=== PATIENT | male | born 1955 | race African-American/Black ===

== ENCOUNTER 2019-12-28 15:29 | Emergency (ER) | payer OTHER, SELFPAY ==
--- NOTE | ~2019-12-28 | CT_ITS ---
EXAMINATION: CT abdomen pelvis wo con DATE: 12/28/2019 17:58 INDICATION: Right flank pain. TECHNIQUE: Computed tomography (CT) of the abdomen and pelvis was performed without intravenous contr ast. Automated exposure control and iterative reconstruction technique were employed. The dose-length product was 279.32 mGy-cm. COMPARISON: None. FINDINGS: The visualized portions of the lung bases demonstrate minimal atelectasis. No pleural effus ion. The heart size is normal. No pericardial effusion. The liver, gallbladder, spleen, pancreas, adr enal glands, and kidneys are normal. There is no urolithiasis. The prostate is moderately enlarged. T here is a small left inguinal hernia containing fat. There are no dilated loops of bowel. The appendi x is normal. There is an umbilical hernia containing a loop of nonobstructed small bowel. There are n o pathologically enlarged lymph nodes. There is no free intraperitoneal fluid. There is mild thoracic and lumbar spondylosis. IMPRESSION: 1. No urolithiasis. 2. Umbilical hernia containing a loop of nonobstructed small bowel. Reviewed, dictated and finalized at location A. R ANALYST
[2019-12-28 16:16] VITALS: BP 162/95; PULSE 80; RESP 16; TEMP 36.6; O2SAT 100
[2019-12-28 16:35] LABS: Basophils Absolute Auto 0.1 K/mm3 (0.0-0.1); Basophils Percent Auto 0.8 % (0.2-1.2); Eosinophils Absolute Auto 0.1 K/mm3 (0-0.3); Eosinophils Percent Auto 1.7 % (0-4.4); Hematocrit 36.6 % (42.0-52.0); Hemoglobin 11.6 g/dL (14.0-18.0); Immature Granulocyte Absolute 0.01 K/mm3 (0.00-0.031); Immature Granulocyte Percent A 0.1 % (0-0.5); Immature Platelet Fraction Pct 10.9 % (0.9-11.2); Lymphocytes Percent Auto 27.7 % (18.3-44.2); Mean Corpuscular HGB Conc 31.7 g/dl (32-36); Mean Corpuscular Volume 66.3 fl (80-100); Monocytes Absolute Auto 0.4 K/mm3 (0.1-0.6); Neutrophils Absolute Auto 4.6 K/mm3 (1.3-6.7); Neutrophils Percent Auto 63.7 % (45.5-73.1); Platelet Count Result 144 k/mm3 (150-375); Red Blood Count 5.52 M/mm3 (4.6-6.20); Red Cell Distribution Width 15.7 % (11.5-14.5); White Blood Count 7.2 K/mm3 (4.5-10.0)
[2019-12-28 16:50] LABS: Blood Urea Nitrogen 16 mg/dL (9-20); Calcium 9.2 mg/dL (8.4-10.2); Carbon Dioxide 24 mmol/L (22-30); Chloride 103 mmol/L (98-107); Estimated CRCL calculation 65 ml/min; Estimated Glomerular Filt Rate > 60; Glucose 231 mg/dL (75-110); Sodium 138 mmol/L (137-145)
[2019-12-28 17:04] LABS: Add Urine Microscopic? YES; Appearance Urine Clear (Clear); Bacteria Urine Trace /hpf; Bilirubin Urine Negative (Negative); Blood Urine Negative (Negative); Color Urine Yellow (Yellow); Glucose Urine UA 3+ mg/dL (Negative); Ketones Urine Negative (Negative); Leukocyte Esterase Ur Negative LEU/UL (Negative); Mucus Urine Rare /lpf; Nitrate Urine Negative (Negative); Protein Urine Negative (Negative); RBC Urine 0-2 /hpf (0-2); Specific Grav Ur 1.023 (1.001-1.035); Squamous Epithelial Cell Urine Rare /hpf (Few); Urobilinogen Urine Negative mg/dL (<2.0); WBC Urine 0-3 /hpf
[2019-12-28 17:37] VITALS: BP 152/88; PULSE 84; RESP 18; O2SAT 98
--- NOTE | 2019-12-28 17:41 | ED.ABDPAIN ---
HPI - Abdominal Pain General Chief Complaint: Abdominal Pain Stated Complaint: abd pain Time Seen by Provider: 12/28/19 17:38 Source: patient and RN notes reviewed Mode of arrival: other Limitations: no limitations History of Present Illness HPI narrative: Pt is a 64 y/o male who presents to the ED with c/o mild to moderate intermittent right flank pain that radiates to his testicles that began yesterday evening. Pt denies any alleviating or aggravating factors. Pt states that he has tried to sit and lay down in different positions to alleviate his sx, but with no relief. Pt reports dark colored urine, but denies dysuria, hematuria, urinary hesitancy, diaphoresis, vomiting, and a fever. MD elicited complaint: flank pain Onset (ago): day(s) (1) Pain Consistency: intermittent Location: R flank Severity: mild (to moderate) Radiation: other (testicles) Exacerbating factors: nothing Relieving factors: nothing Associated symptoms: other (dark colored urine) Related Data Home Medications Medication Instructions Recorded Confirmed glipizide 5 mg tablet 5 mg PO BID 10/07/19 insulin glargine 100 unit/mL (3 10 unit SUB-Q BID ml 10/07/19 mL) subcutaneous pen lisinopril 20 mg tablet 20 mg PO DAILY 10/07/19 omeprazole 20 mg capsule,delayed 20 mg PO DAILY 10/07/19 release sitagliptin 50 mg-metformin 1,000 1 tablet PO BID 10/07/19 mg tablet tadalafil 10 mg tablet 20 mg PO DAILY PRN tablet 10/07/19 Allergies Allergy/AdvReac Type Severity Reaction Status Date / Time No Known Allergies Allergy Verified 12/28/19 17:37 Review of Systems Review of Systems: All systems reviewed & are unremarkable except as noted in HPI and below Constitutional: Constitutional: Denies fever(s) Cardiovascular: Cardiovascular: Denies diaphoresis Gastrointestinal: Gastrointestinal: Denies vomiting Genitourinary: Genitourinary: Denies hematuria, Denies dysuria, Reports flank pain (right, radiates to his testicles), Denies urinary hesitancy and Reports other (dark colored urine) [facility] Past Medical History Medical History (Updated 12/28/19 @ 21:03 by Gurwinder Sellers MD) Benign essential hypertension Enlarged prostate without lower urinary tract symptoms (luts) Erectile dysfunction associated with type 2 diabetes mellitus Gastroesophageal reflux disease Stage 3 chronic kidney disease due to type 2 diabetes mellitus Thalassemia minor Type II diabetes mellitus with renal manifestations Vitamin D deficiency Surgical History Surgical History (Updated 12/28/19 @ 17:55 by Crystal Blunt) Surgical history unknown Family History Family History (Updated 06/01/16 @ 23:19 by DOCTOR UNKNOWN) Mother Family history of malignant neoplasm, Onset Age: 54 Father Family history of diabetes mellitus in first degree relative, Onset Age: 96 Sibling Acute myocardial infarction, Onset Age: 55 Social History Social History Smoking status: Never smoker Alcohol intake: current Exam Const: General: healthy appearing, no acute distress and well developed Nutritional Appearance: well nourished Orientation/consciousness: patient oriented x3 (alert) and Other orientation findings (Alert) Limitations: no limitations HENMT: Head: normocephalic and atraumatic Ears: external ears normal General nose exam: No nasal discharge present and no epistaxis Face and sinus: face symmetric Mouth: Yes lip normal, Yes tongue normal and Yes moist mucous membranes Throat: other (No exudate, no erythema) Eyes: Conjunctivae: conjunctivae normal Sclera: sclerae normal EOM: EOMs intact bilaterally Neck: Neck: full ROM, no lymphadenopathy and supple Thyroid: thyroid normal Chest: Chest palpation & inspection: no tenderness Resp: Effort & Inspection: normal respiratory effort Auscultation: clear to auscultation bilaterally, no rales, no rhonchi, no wheezes and other (breath sounds equal) Cardio: Rate: regular rate Rhythm: regular rhythm Heart
[2019-12-28] MEDS: KETOROLAC 30 MG/ML VIAL (*BKC) 60 MG IM (18:16)
[2019-12-28 18:27] LABS: Iron 78 ug/dL (49-181)
[2019-12-28 18:36] LABS: Percent Iron Saturation 27 % (20-50)
[2019-12-28 19:15] VITALS: BP 148/84; PULSE 88; RESP 16; O2SAT 97
[2019-12-28] MEDS: DICYCLOMINE HCL INJ 20 MG/2 ML VIAL IM (20:12)
== END 2019-12-28 21:15 | disposition home or self-care (01) ==
PROVIDERS: Emergency Medicine; Emergency Provider Emergency Medicine; PCP Internal Medicine
DX: R10.9 Unspecified abdominal pain (principal); N40.0 Benign prostatic hyperplasia without lower urinary tract symptoms; K21.9 Gastro-esophageal reflux disease without esophagitis; E11.22 Type 2 diabetes mellitus with diabetic chronic kidney disease; I12.9 Hypertensive chronic kidney disease with stage 1 through stage 4 chronic kidney disease, or unspecified chronic kidney disease; N18.3 Chronic kidney disease, stage 3 (moderate); Z79.4 Long term (current) use of insulin; Z79.84 Long term (current) use of oral hypoglycemic drugs; E55.9 Vitamin D deficiency, unspecified; E11.69 Type 2 diabetes mellitus with other specified complication; N52.1 Erectile dysfunction due to diseases classified elsewhere; K42.9 Umbilical hernia without obstruction or gangrene
CPT/HCPCS: 36415; 74176; 80048; 81001; 83540; 83550; 85025; 85055; 96372; 99284; A9270; J0500; J1885

== ENCOUNTER 2022-04-25 01:13 | Day surgery (SDC) | payer MEDICARE, OTHER, SELFPAY ==
[2022-04-13 14:43] VITALS: BMI 26.4
[2022-04-25 08:58] VITALS: BP 142/90; PULSE 72; RESP 18; TEMP 36.4; O2SAT 100
[2022-04-25] MEDS: LACTATED RINGERS 1,000 ML 150 ML IV CONT (09:10)
[2022-04-25 09:13] LABS: Glucose Point of Care 148 mg/dl (65-105)
--- NOTE | 2022-04-25 09:20 | WPDANESEPPF ---
Anes - Initial Pre Proc Eval Procedure: Operation Date: 04/25/22 10:00 Proposed Procedures p Screening Colonoscopy - Jose Duke MD Date/Time: 04/25/22 09:20 Surgeon: Jose Duke MD Pre Op Diagnosis: neoplasm screening Patient Data Age: 66 Gender: M Height: 1.83 m Weight: 85.3 kg Last Vital Signs Temp 36.4 C 04/25/22 08:58 Pulse 72 04/25/22 08:58 Resp 18 04/25/22 08:58 BP 142/90 H 04/25/22 08:58 Pulse Ox 100 04/25/22 08:58 O2 Del Method Room Air 04/25/22 08:58 Allergies Allergy/AdvReac Type Severity Reaction Status Date / Time No Known Allergies Allergy Verified 04/25/22 08:56 Home Medications Medication Instructions Recorded Confirmed Type lisinopril 20 mg tablet 20 mg PO DAILY 10/07/19 04/13/22 History ergocalciferol (vitamin D2) 1,250 50,000 unit PO MONTHLY #12 caps 11/09/19 04/13/22 Rx mcg (50,000 unit) capsule tadalafil 20 mg tablet (Cialis) 20 mg PO DAILY PRN sexual activity 04/26/21 04/13/22 Rx #6 tabs pen needle, diabetic 31 gauge x See Rx Instructions .Route 11/15/21 04/13/22 Rx 3/16 (BD Ultra-Fine Mini Pen .COMPLEX #100 ea Needle) glipizide 5 mg tablet 5 mg PO BID #90 tabs 03/08/22 04/13/22 Rx insulin glargine 100 unit/mL (3 15 unit subcut BID 04/13/22 04/13/22 History mL) subcutaneous pen (Basaglar KwikPen U-100 Insulin) lovastatin 20 mg tablet 20 mg PO HS 04/13/22 04/13/22 History sitagliptin 50 mg-metformin 1,000 1 tablet PO BID 04/13/22 04/13/22 History mg tablet (Janumet) Laboratory Tests 04/25/22 09:06 POC Capillary Glucose 148 mg/dl H mg/dl (65-105) Patient hx anesthesia problems: none Family hx anesthesia problems: none Results Review: All pre-operative results and documents have been reviewed as part of the pre-operative evaluation. [facility] Past Medical History Medical History Benign essential hypertension Enlarged prostate without lower urinary tract symptoms (luts) Erectile dysfunction associated with type 2 diabetes mellitus Gastroesophageal reflux disease Shingles Stage 3 chronic kidney disease due to type 2 diabetes mellitus Thalassemia minor Type II diabetes mellitus with renal manifestations Vitamin D deficiency Surgical History Surgical History Surgical history unknown Family History Family History Mother Family history of malignant neoplasm, Onset Age: 54 Father Family history of diabetes mellitus in first degree relative, Onset Age: 96 Sibling Acute myocardial infarction, Onset Age: 55 Social History Social History Smoking packs per day: 0.1 Smoking cigarettes per day: 2.0 Years smoked: 5 Smoking pack-years: 0.50 Smoking status: Former smoker Tobacco type: cigarettes Smoking end date: 11/04/19 Alcohol intake: current Drinks per week: 3 Substance use: never Substance use type: does not use Living arrangements: with family Spiritual care concerns: No Anes - Eval Final PreProcedure Day of Procedure 04/25/22 09:20 Results Review: All pre-operative results and documents have been reviewed as part of the pre-operative evaluation. Informed Consent: The patient's anesthetic plan and its attendant risks and benefits were discussed with the patient/family/POA. Questions were solicited and answers provided to the satisfaction of the patient/family/POA.
--- NOTE | 2022-04-25 09:22 | PM.HPGS ---
History of Present Illness History of Present Illness Consent: Risks, benefits, and alternatives have been discussed and questions answered. Patient agrees to proceed with procedure. Chief complaint: neoplasm screening Narrative: Lee Ontiveros is a 66 year old male here for screening colonoscopy, last one ~ 5 years ago. Review of Systems Constitutional: Constitutional: Denies headache(s) and Denies weakness Eyes: Eyes: Denies blurry vision ENT: Reports Normal hearing present, Denies headache(s) and Denies neck pain Cardiovascular: Cardiovascular: Denies chest pain and Denies dyspnea Respiratory: Respiratory: Denies dyspnea Gastrointestinal: Gastrointestinal: Reports no additional gastrointestinal complaints Genitourinary: Genitourinary: Denies dysuria Musculoskeletal: Musculoskeletal: Denies neck pain Integumentary/Breasts: Skin/Breast: Denies dry skin Neurologic: Reports Normal hearing present, Denies headache(s) and Denies weakness Psychiatric: Psychiatric: Denies anxiety Endocrine: Endocrine: Denies change in body appearance Hematologic/Lymphatic: Hematologic/Lymphatic: Denies easy bleeding Allergic/Immunologic: Allergic/Immunologic: Denies urticaria PMFSH Past Medical History Medical History Benign essential hypertension Enlarged prostate without lower urinary tract symptoms (luts) Erectile dysfunction associated with type 2 diabetes mellitus Gastroesophageal reflux disease Shingles Stage 3 chronic kidney disease due to type 2 diabetes mellitus Thalassemia minor Type II diabetes mellitus with renal manifestations Vitamin D deficiency Surgical History Surgical History Surgical history unknown Family History Family History Mother Family history of malignant neoplasm, Onset Age: 54 Father Family history of diabetes mellitus in first degree relative, Onset Age: 96 Sibling Acute myocardial infarction, Onset Age: 55 Social History Social History Smoking packs per day: 0.1 Smoking cigarettes per day: 2.0 Years smoked: 5 Smoking pack-years: 0.50 Smoking status: Former smoker Tobacco type: cigarettes Smoking end date: 11/04/19 Alcohol intake: current Drinks per week: 3 Substance use: never Substance use type: does not use Living arrangements: with family Spiritual care concerns: No Meds Home Medications and Allergies Home Medications Medication Instructions Recorded Confirmed Type lisinopril 20 mg tablet 20 mg PO DAILY 10/07/19 04/13/22 History ergocalciferol (vitamin D2) 1,250 50,000 unit PO MONTHLY #12 caps 11/09/19 04/13/22 Rx mcg (50,000 unit) capsule tadalafil 20 mg tablet (Cialis) 20 mg PO DAILY PRN sexual activity 04/26/21 04/13/22 Rx #6 tabs pen needle, diabetic 31 gauge x See Rx Instructions .Route 11/15/21 04/13/22 Rx 3/16 (BD Ultra-Fine Mini Pen .COMPLEX #100 ea Needle) glipizide 5 mg tablet 5 mg PO BID #90 tabs 03/08/22 04/13/22 Rx insulin glargine 100 unit/mL (3 15 unit subcut BID 04/13/22 04/13/22 History mL) subcutaneous pen (Basaglar KwikPen U-100 Insulin) lovastatin 20 mg tablet 20 mg PO HS 04/13/22 04/13/22 History sitagliptin 50 mg-metformin 1,000 1 tablet PO BID 04/13/22 04/13/22 History mg tablet (Janumet) Allergies Allergy/AdvReac Type Severity Reaction Status Date / Time No Known Allergies Allergy Verified 04/25/22 08:56 Vital Signs Vital Signs - 24 hr 04/25/22 08:58 Temperature 97.6 F Pulse Rate 72 Respiratory Rate 18 Blood Pressure 142/90 H Pulse Oximetry 100 Oxygen Delivery Room Air Exam Const: General: comfortable and no acute distress HENMT: General nose exam: Normal nares present Eyes: General: appearance normal, both eyes and all related structures
[2022-04-25 09:40] VITALS: BP 127/92; PULSE 74; RESP 17; O2SAT 100
[2022-04-25 09:50] VITALS: BP 133/92; PULSE 63; RESP 21; O2SAT 100
[2022-04-25 09:53] LABS: Glucose Point of Care 134 mg/dl (65-105)
[2022-04-25 10:00] VITALS: BP 150/90; PULSE 68; RESP 24; O2SAT 100
== END 2022-04-25 10:15 | disposition home or self-care (01) ==
PROVIDERS: PCP Internal Medicine; Visit Provider Internal Medicine Gastroenterology
PROC: 0DJD8ZZ Inspection of Lower Intestinal Tract, Via Natural or Artificial Opening Endoscopic (ICD-10-PCS; CPT 45378; principal; 2022-04-25 10:00)
DX: Z12.11 Encounter for screening for malignant neoplasm of colon (principal); K57.30 Diverticulosis of large intestine without perforation or abscess without bleeding; K64.8 Other hemorrhoids; N40.0 Benign prostatic hyperplasia without lower urinary tract symptoms; K21.9 Gastro-esophageal reflux disease without esophagitis; I12.9 Hypertensive chronic kidney disease with stage 1 through stage 4 chronic kidney disease, or unspecified chronic kidney disease; E11.22 Type 2 diabetes mellitus with diabetic chronic kidney disease; N18.30 Chronic kidney disease, stage 3 unspecified; E55.9 Vitamin D deficiency, unspecified; D56.3 Thalassemia minor; N52.1 Erectile dysfunction due to diseases classified elsewhere; Z79.4 Long term (current) use of insulin; Z79.84 Long term (current) use of oral hypoglycemic drugs; Z87.891 Personal history of nicotine dependence
CPT/HCPCS: G0121; 82948; J2001; J2704; J7120